=== PATIENT | female | born 1975 | race Hispanic/Latino ===

== ENCOUNTER 2018-03-27 14:53 | Emergency (ER) | payer OTHER ==
--- NOTE | 2018-03-27 17:23 | EDPHYS ---
Physician Documentation [facility] Name: Ana Maria Keller Age: 42 yrs Sex: Female : 1975 Arrival Date: 03/27/2018 Time: 14:54 Bed 15 Private MD: Aaron Del Valle V ED Physician Hansel Dial HPI: 03/27 17:20 This 42 yrs old Female presents to ER via Ambulatory with complaints of courtney Passing Blood Clots. 17:20 The patient presents with vaginal bleeding that is light, moderate. Onset: The courtney symptoms/episode began/occurred 3 day(s) ago. Modifying factors: The symptoms are alleviated by nothing, the symptoms are aggravated by nothing. Associated signs and symptoms: The patient has no apparent associated signs or symptoms. Severity of symptoms: At their worst the symptoms were mild, moderate, in the emergency department the symptoms are unchanged. The patient is sexually active, reportedly has a single partner. 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 - Social history:: Smoking status: Patient/guardian denies using tobacco. - Ebola Screening: : No symptoms or risks identified at this time. - Family history:: not pertinent. ROS: 17:20 Constitutional: Negative for fever, chills, and weight loss, Eyes: Negative for injury, courtney pain, redness, and discharge, ENT: Negative for injury, pain, and discharge, Neck: Negative for injury, pain, and swelling, Cardiovascular: Negative for chest pain, palpitations, and edema, Respiratory: Negative for shortness of breath, cough, wheezing, and pleuritic chest pain, Abdomen/GI: Negative for abdominal pain, nausea, vomiting, diarrhea, and constipation, Back: Negative for injury and pain, MS/Extremity: Negative for injury and deformity, Skin: Negative for injury, rash, and discoloration, Neuro: Negative for headache, weakness, numbness, tingling, and seizure, Psych: Negative for depression, anxiety, suicide ideation, homicidal ideation, and hallucinations, Allergy/Immunology: Negative for hives, rash, and allergies, Endocrine: Negative for neck swelling, polydipsia, polyuria, polyphagia, and marked weight changes, Hematologic/Lymphatic: Negative for swollen nodes, abnormal bleeding, and unusual bruising. 17:20 : Positive for pelvic pain, vaginal bleeding. Exam: 17:20 Constitutional: This is a well developed, well nourished patient who is awake, alert, courtney and in no acute distress. Head/Face: Normocephalic, atraumatic. Eyes: Pupils equal round and reactive to light, extra-ocular motions intact. Lids and lashes normal. Conjunctiva and sclera are non-icteric and not injected. Cornea within normal limits. Periorbital areas with no swelling, redness, or edema. ENT: Nares patent. No nasal discharge, no septal abnormalities noted. Tympanic membranes are normal and external auditory canals are clear. Oropharynx with no redness, swelling, or masses, exudates, or evidence of obstruction, uvula midline. Mucous membranes moist. Neck: Trachea midline, no thyromegaly or masses palpated, and no cervical lymphadenopathy. Supple, full range of motion without nuchal rigidity, or vertebral point tenderness. No Meningismus. Chest/axilla: Normal chest wall appearance and motion. Nontender with no deformity. No lesions are appreciated. Cardiovascular: Regular rate and rhythm with a normal S1 and S2. No gallops, murmurs, or rubs. Normal PMI, no JVD. No pulse deficits. Respiratory: Lungs have equal breath sounds bilaterally, clear to auscultation and percussion. No rales, rhonchi or wheezes noted. No increased work of breathing, no retractions or nasal flaring. Abdomen/GI: Soft, non-tender, with normal bowel sounds. No distension or tympany. No guarding or rebound. No evidence of tenderness throughout. Back: No spinal tenderness. No costovertebral tenderness. Full range of motion. Female : Normal external genitalia. Skin: Warm, dry with normal turgor. Normal color with no rashes, no lesions, and no evidence of cellulitis. MS/ Extremity: Pulses equal, no cyanosis. Neurovascular intact. Full, normal range of motion. Neuro: Awake and alert, GCS 15, oriented to person, place, time, and situation. Cranial nerves II-XII grossly intact. Motor strength 5/5 in all extremities. Sensory grossly intact. Cerebellar exam normal. Normal gait. Vital Signs: 15:23 BP 147 / 87; Pulse 87; Resp 16; Temp 98.5; Pulse Ox 100% on R/A; Weight 72.57 kg (M); hb Height 4 ft. 11 in. (149.86 cm); Pain 2/10; 18:10 BP 135 / 86; Pulse 77; Resp 16; Pulse Ox 100% on R/A; mb3 18:14 BP 133 / 72 Supine; Pulse 83; Resp 17; Pulse Ox 100% on R/A; mh5 18:16 BP 139 / 85 Sitting; Pulse 90; Resp 16; Pulse Ox 100% on R/A; mh5 18:17 BP 143 / 74 Standing; Pulse 78; Resp 16; Pulse Ox 100% on R/A; mh5 15:23 Body Mass Index 32.32 (72.57 kg, 149.86 cm) hb MDM: 16:59 Patient medically screened. [facility] 17:21 Data reviewed: vital signs, nurses notes, lab test result(s), radiologic studies, courtney ultrasound. 03/27 17:19 Order name: Abo/rh Typing; Complete Time: 18:43 [facility] 03/27 17:19 Order name: Basic Metabolic Panel; Complete Time: 18:43 [facility] 03/27 17:19 Order name: CBC with Diff; Complete Time: 18:43 [facility] 03/27 17:31 Order name: Urine Dipstick--Ancillary (enter results) 03/27 17:31 Order name: Urine --Ancillary (enter results) 03/27 17:32 Order name: Urine Dipstick-Ancillary; Complete Time: 18:43 EDMS 03/27 16:09 Order name: Orthostatics; Complete Time: 18:24 snw 03/27 17:19 Order name: Urine Test (obtain specimen); Complete Time: 17:38 [facility] 03/27 17:19 Order name: IV Saline Lock; Complete Time: 17:38 [facility] 03/27 17:19 Order name: Labs collected and sent; Complete Time: 17:38 [facility] 03/27 17:19 Order name: NPO; Complete Time: 17:38 [facility] 03/27 17:19 Order name: US Transvaginal Study (Probe) [facility] 03/27 17:32 Order name: Urine --Ancillary; Complete Time: 18:43 [facility] 03/27 17:19 Order name: Urine Dipstick-Ancillary (obtain specimen); Complete Time: 17:37 [facility] Administered Medications: 17:31 Drug: NS 0.9% 1000 ml Route: IV; Rate: 1 bolus; Site: right antecubital; mb3 19:05 Follow up: Response: No adverse reaction; IV Status: Completed infusion; IV Intake: mb3 1000ml Disposition: 03/27/18 17:22 Discharged to Home. Impression: Unspecified menopausal and perimenopausal disorder, Leiomyoma of uterus. - Condition is Stable. - Discharge Instructions: Dysmenorrhea, Uterine Fibroids, Postmenopausal Bleeding, Uterine Fibroids, [id number], Postmenopausal Bleeding, [id number], Dysmenorrhea, [id number]. - Medication Reconciliation Form, Thank You Letter, Antibiotic Education, Prescription Opioid Use form. - Follow up: Aaron Del Valle MD; When: 2 - 3 days; Reason: Recheck today's complaints, Continuance of care, Re-evaluation by your physician. Follow up: Marbella aFlk MD; When: 2 - 3 days; Reason: Recheck today's complaints, Re-evaluation by your physician. Follow up: Barbara Sky MD; When: 2 - 3 days; Reason: Recheck today's complaints, Continuance of care, Re-evaluation by your physician. - Problem is new. - Symptoms have improved. Signatures: Dispatcher [employer] [facility] Hansel Dial MD MD cha Therrien, Shelly, HEARING HEALTHCARE PRACTITIONER-C [employer]AR[employer]ALTHCARE PRACTITIONER-Csnw Mia Anderson RN RN Khari Robert, EVE RN mb3 Corrections: (The following items were deleted from the chart) 17:24 17:22 03/27/2018 17:22 Discharged to Home. Impression: Unspecified menopausal and courtney perimenopausal disorder. Condition is Stable. Forms are Medication Reconciliation Form, Thank You Letter, Antibiotic Education, Prescription Opioid Use. Follow up: Aaron Del Valle; When: 2 - 3 days; Reason: Recheck today's complaints, Continuance of care, Re-evaluation by your physician. Problem is new. Symptoms have improved. [facility] 18:44 17:24 03/27/2018 17:22 Discharged to Home. Impression: Unspecified menopausal and courtney perimenopausal disorder. Condition is Stable. Discharge Instructions: Dysmenorrhea, Dysmenorrhea, [id number]. Forms are Medication Reconciliation Form, Thank You Letter, Antibiotic Education, Prescription Opioid Use. Follow up: Aaron Del Valle; When: 2 - 3 days; Reason: Recheck today's complaints, Continuance of care, Re-evaluation by your physician. Follow up: Marbella Falk; When: 2 - 3 days; Reason: Recheck today's complaints, Re-evaluation by your physician. Problem is new. Symptoms have improved. [facility] 19:07 18:44 03/27/2018 17:22 Discharged to Home. Impression: Unspecified menopausal and mb3 perimenopausal disorder; Leiomyoma of uterus. Condition is Stable. Discharge Instructions: Dysmenorrhea, Dysmenorrhea, [id number]. Forms are Medication Reconciliation Form, Thank You Letter, Antibiotic Education, Prescription Opioid Use. Follow up: Aaron Del Valle; When: 2 - 3 days; Reason: Recheck today's complaints, Continuance of care, Re-evaluation by your physician. Follow up: Marbella Falk; When: 2 - 3 days; Reason: Recheck today's complaints, Re-evaluation by your physician. Follow up: Barbara Sky; When: 2 - 3 days; Reason: Recheck today's complaints, Continuance of care, Re-evaluation by your physician. Problem is new. Symptoms have improved. [facility]
--- NOTE | 2018-03-27 17:23 | ER ---
Nurse's Notes [facility] Name: Ana Maria Keller Age: 42 yrs Sex: Female : 1975 Arrival Date: 03/27/2018 Time: 14:54 Bed 15 Private MD: Aaron Del Valle V Diagnosis: Unspecified menopausal and perimenopausal disorder;Leiomyoma of uterus Presentation: 03/27 15:21 Presenting complaint: Patient states: Heavy menstrual bleeding with quarter sized clots hb x 2 days. Going through a pad an hour. Transition of care: patient was not received from another setting of care. Onset of symptoms was March 26, 2018. Risk Assessment: Do you want to hurt yourself or someone else? Patient reports no desire to harm self or others. Initial Sepsis Screen: Does the patient meet any 2 criteria? No. Patient's initial sepsis screen is negative. Does the patient have a suspected source of infection? No. Patient's initial sepsis screen is negative. Care prior to arrival: None. 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 - Social history:: Smoking status: Patient/guardian denies using tobacco. - Ebola Screening: : No symptoms or risks identified at this time. - Family history:: not pertinent. Screenin:06 Abuse screen: Denies threats or abuse. Nutritional screening: No deficits noted. mb3 Tuberculosis screening: No symptoms or risk factors identified. Fall Risk None identified. Assessment: 17:39 General: Appears in no apparent distress. comfortable, Behavior is calm, cooperative, mb3 appropriate for age. Pain: Denies pain. Neuro: No deficits noted. Cardiovascular: No deficits noted. Respiratory: No deficits noted. GI: No deficits noted. No signs and/or symptoms were reported involving the gastrointestinal system. GI: Abdomen is flat, Bowel sounds present X 4 quads. Abd is soft and non tender. : Reports vaginal bleeding that is. 18:12 Reassessment: No changes from previously documented assessment. Patient and/or family mb3 updated on plan of care and expected duration. Pain level reassessed. Patient is alert, oriented x 3, equal unlabored respirations, skin warm/dry/pink. Vital Signs: 15:23 BP 147 / 87; Pulse 87; Resp 16; Temp 98.5; Pulse Ox 100% on R/A; Weight 72.57 kg (M); hb Height 4 ft. 11 in. (149.86 cm); Pain 2/10; 18:10 BP 135 / 86; Pulse 77; Resp 16; Pulse Ox 100% on R/A; mb3 18:14 BP 133 / 72 Supine; Pulse 83; Resp 17; Pulse Ox 100% on R/A; mh5 18:16 BP 139 / 85 Sitting; Pulse 90; Resp 16; Pulse Ox 100% on R/A; mh5 18:17 BP 143 / 74 Standing; Pulse 78; Resp 16; Pulse Ox 100% on R/A; mh5 15:23 Body Mass Index 32.32 (72.57 kg, 149.86 cm) hb ED Course: 14:54 Patient arrived in ED. sb2 14:55 Aaron Del Valle MD is Private Physician. sb2 15:23 Triage completed. hb 15:27 Arm band placed on right wrist. hb 16:50 Khari Robert, RN is Primary Nurse. mb3 16:59 Hansel Dial MD is Attending Physician. courtney 17:22 Aaron Del Valle MD is Referral Physician. courtney 17:24 Marbella Falk MD is Referral Physician. courtney 17:30 Inserted saline lock: 22 gauge in right antecubital area, using aseptic technique. mb3 Blood collected. 17:59 US Transvaginal Study (Probe) In Process Unspecified. EDMS 18:00 Ultrasound completed. Patient tolerated well. cy 18:13 Urine --Ancillary (enter results) Sent. mb3 18:13 Urine Dipstick--Ancillary (enter results) Sent. mb3 18:44 Barbara Sky MD is Referral Physician. courtney 19:05 No provider procedures requiring assistance completed. IV discontinued, intact, mb3 bleeding controlled, No redness/swelling at site. Pressure dressing applied. 19:06 Patient has correct armband on for positive identification. mb3 Administered Medications: 17:31 Drug: NS 0.9% 1000 ml Route: IV; Rate: 1 bolus; Site: right antecubital; mb3 19:05 Follow up: Response: No adverse reaction; IV Status: Completed infusion; IV Intake: mb3 1000ml Intake: 19:05 IV: 1000ml; Total: 1000ml. mb3 Outcome: 17:22 Discharge ordered by MD. valdez 19:06 Discharged to home ambulatory. mb3 19:06 Condition: stable 19:06 Discharge instructions given to patient, Instructed on discharge instructions, follow up and referral plans. Demonstrated understanding of instructions, follow-up care. 19:07 Patient left the ED. mb3 Signatures: Dispatcher [employer] EDMS Hansel Dial MD MD cha Baxter, Heather, RN RN Vaishnavi Liu 5 Linda Fernandez Sheri 2 Khari Robert, RN RN mb3 Corrections: (The following items were deleted from the chart) 15:25 15:21 Presenting complaint: Patient states: Heavy menstrual bleeding with quarter sized hb clots x 2 days. Going through a pad an hour. hb
[2018-03-27] MEDS ORDERED: NA CHLORIDE 0.9% 1,000 ML ONE (17:27)
[2018-03-27 17:53] LABS: Absolute Lymphocytes (CBC) 1.7 K/uL (0.7-4.9); Absolute Monocytes 0.5 K/uL (0.1-1.3); Absolute Neutrophil 7.3 K/uL (1.8-8.0); Basophils % 0.3 % (0-1.3); Eosinophils % 1.2 % (0-4.4); Lymphocytes % 17.4 % (15.3-44.8); MCH 29.8 pg (27.0-35.0); MCV 88.2 fL (80-100); MPV 8.7 fL (7.6-11.3); Monocytes % 5.3 % (3.3-12.3); RBC Red Blood Cell Count 3.85 M/uL (3.86-4.86)
[2018-03-27 17:58] LABS: BUN Blood Urea Nitrogen 14 mg/dL (7-18); Bicarbonate 29 mmol/L (21-32); Glucose Level 94 mg/dL (74-106); Potassium 3.6 mmol/L (3.5-5.1); Sodium Level 142 mmol/L (136-145)
[2018-03-27 18:10] LABS: Urine Blood 3+ (NEG); Urine Glucose NEGATIVE (NEG); Urine Protein 1+ (NEG); Urine Specific Gravity 1.025 (1.005-1.030)
--- NOTE | 2018-03-27 19:34 | RAD REPORT ---
EXAM DESCRIPTION: US - Transvaginal Study Probe - 03/27/2018 5:59 pm CLINICAL HISTORY: Vaginal bleeding COMPARISON: 2012 FINDINGS: The uterus measures 8 x 5 x 5cm. The endometrial stripe measures 4 millimeters. A 3 centimeter isoechoic structure within the anterior uterine fundus is equivocal for a fibroid. A 1 .2 centimeter isoechoic structure abuts the endometrium also equivocal for a fibroid. Nabothian cysts are present within the cervix The left ovary is normal in size echotexture. The right ovary was not seen. No significant free fluid is seen. IMPRESSION: Two equivocal a uterine fibroids One maybe submucosal. If clinically indicated further e valuation with nonemergent MRI could be obtained
== END 2018-03-27 19:07 | disposition home or self-care (01) ==
LOC: ER 14:53
DX: D25.9 Leiomyoma of uterus, unspecified (principal); I10 Essential (primary) hypertension; Z78.0 Asymptomatic menopausal state; Z88.6 Allergy status to analgesic agent; Z91.018 Allergy to other foods
CPT/HCPCS: 36415; 76830; 80048; 81003; 81025; 85025; 86900; 86901; 96360; 96361; 99284; J7030

== ENCOUNTER 2024-12-28 06:51 | Day surgery (SDC) | payer OTHER ==
[2024-12-25 12:17] LABS: Absolute Eosinophils 0.1 K/uL (0-0.5); Absolute Lymphocytes (CBC) 1.7 K/uL (0.7-4.9); Absolute Monocytes 0.4 K/uL (0.1-1.3); Absolute Neutrophil 4.7 K/uL (1.8-8.0); Basophils % 0.5 % (0-1.3); Eosinophils % 1.8 % (0-4.4); Hematocrit 37.8 % (36.0-45.0); Hemoglobin 13.1 g/dL (12.0-15.0); Lymphocytes % 23.8 % (15.3-44.8); MCH 30.1 pg (27.0-35.0); MCHC 34.6 g/dL (32.0-36.0); Monocytes % 5.9 % (3.3-12.3); Platelets 299 thou/uL (152-406); RBC Red Blood Cell Count 4.35 M/uL (3.86-4.86); Red Cell Distribution Width 13.7 % (12.1-15.2)
[2024-12-25 12:30] LABS: Anion Gap 5.8 mEq/L (5.0-15.0); Potassium 3.8 mEq/L (3.5-5.1)
--- NOTE | 2024-12-26 12:37 | EKG ---
Test Date: 2024-12-25 Test Time: 11:43:22 Clerk Of Scales: MEASUREMENT RESULTS: Intervals: Rate: 75 FL: 170 QRSD: 76 QT: 358 QTc: 399 Transfer: P: 53 FL: 170 QRS: 60 T: 51 INTERPRETIVE STATEMENTS: Normal sinus rhythm Normal ECG Compared to ECG 12/13/2012 17:27:08 Sinus arrhythmia no longer present Electronically Signed On 12-26-24 12:36:20 CDT by Andrew Diaz
[2024-12-28] MEDS ORDERED: SUCCINYLCHOLINE 20 MG/ML (10 ML) IV ONE (07:28)
[2024-12-28] MEDS ORDERED: LIDOCAINE 1% MPF 5 ML VIAL ONE (07:41)
[2024-12-28] MEDS ORDERED: propofoL 200 MG/20 ML VIAL IV ONE (07:41)
[2024-12-28] MEDS: Ringers Lactate 1,000 ML IV ONE (07:46)
[2024-12-28 09:14] VITALS: TEMP 97
[2024-12-28 09:17] VITALS: BP 137/72; O2SAT 98
== END 2024-12-28 08:43 | disposition home or self-care (01) ==
LOC: PRE 06:51 → OR 08:43
PROVIDERS: ATTEND Surgery
PROC: 0DBF8ZX Excision of Right Large Intestine, Via Natural or Artificial Opening Endoscopic, Diagnostic (ICD-10-PCS; principal; 2024-12-28 08:00)
DX: Z12.11 Encounter for screening for malignant neoplasm of colon (principal); K63.5 Polyp of colon
CPT/HCPCS: 93005; 85025; 80048; 36415; 88304; 45380; J2704; J2003; J7120; 88305